=== PATIENT | female | born 1970 | race Caucasian/White ===

== ENCOUNTER 2024-07-11 19:15 | Observation (INO) | payer MEDICAID, SELFPAY ==
[2024-07-11 19:33] VITALS: BP 171/76; PULSE 75; RESP 22; TEMP 37.2; O2SAT 100; BMI 30.2
[2024-07-11 19:37] VITALS: BP 160/82; PULSE 78; RESP 18; O2SAT 100
--- NOTE | 2024-07-11 19:40 | XR_ITS ---
PROCEDURE INFORMATION: Exam: XR Chest Exam date and time: 07/11/2024 7:50 PM Age: 54 years old Clinical indication: Other: AMS TECHNIQUE: Imaging protocol: Radiologic exam of the chest. Views: 1 view. COMPARISON: No relevant prior studies available. FINDINGS: Lungs: Volume loss involving the right lower lung zone. Haziness in the right lower lung zone could be related to atelectasis versus pneumonia or scarring. Left lung clear Pleural spaces: Unremarkable. No pleural effusion. No pneumothorax. Heart/Mediastinum: Unremarkable. No cardiomegaly. Bones/joints: Chronic appearing right lateral chest wall deformity with multiple chronic the rib fractures and associated deformities. IMPRESSION: Right lower lobe atelectasis/scarring versus pneumonia. Correlate clinically.
--- NOTE | 2024-07-11 19:40 | CT_ITS ---
PROCEDURE INFORMATION: Exam: CT Head Without Contrast Exam date and time: 07/11/2024 7:56 PM Age: 54 years old Clinical indication: Altered mental status/memory loss; Additional info: AMS TECHNIQUE: Imaging protocol: Computed tomography of the head without contrast. Radiation optimization: All CT scans at this facility use at least one of these dose optimization techniques: automated exposure control; mA and/or kV adjustment per patient size (includes targeted exams where dose is matched to clinical indication); or iterative reconstruction. COMPARISON: No relevant prior studies available. FINDINGS: Brain: Normal. No hemorrhage. Unremarkable white matter. No mass effect. Cerebral ventricles: No ventriculomegaly. Paranasal sinuses: Visualized sinuses are unremarkable. No fluid levels. Mastoid air cells: Visualized mastoid air cells are well aerated. Bones: Unremarkable. No acute fracture. Soft tissues: Unremarkable. IMPRESSION: No acute intracranial abnormality.
[2024-07-11 20:26] LABS: VBG Base Excess -4.3 mmol/L (-2.4-2.3); VBG HCO3 21.6 mmol/L (23-30); VBG PCO2 41.6 mmol/L (35-51); VBG PH 7.33 mmol/L (7.31-7.41); VBG PO2 38.2 mmol/L (28-40); VBG Total CO2 22.9 mmol/L (23-27)
[2024-07-11 20:30] LABS: Coronavirus 19, PCR Not Detected (NotDetected); Influenza A, PCR Not Detected (NotDetected); Influenza B, PCR Not Detected (NotDetected)
--- NOTE | 2024-07-11 20:30 | ED_ITS ---
Discharge Plan Disposition Patient Disposition: Admitted Clinical Impressions Clinical Impression: Acute alteration in mental status, Hypomagnesemia, Hypocalcemia, Hyperthyroidism Discharge ED Provider: Kaycee Hollins General Adult HPI General Chief complaint: Weakness Stated complaint: Seeing bugs,hearing people talk that are not there Time Seen by Provider: 07/11/24 19:33 Mode of Arrival: Ambulatory Source of Information: Patient Description of Symptoms (Recalled from ER Triage Doc. by RN): pt here w/ c/o bacteria infection. Was in dent ED, dx w/ psychosis per daughter. pt denies fever/pain. History of Present Illness HPI narrative: This patient is a 54-year-old female without known past medical history presenting to the emergency department for evaluation with concern for hallucinations, seeing things that are not there. She notes that she has a very bad bacterial infection and also has very low potassium and needs potassium now. She does not provide any further history. Patient's daughter dropped her off and did not stay to help provide any sort of history. Patient was reportedly recently discharged from [facility], for which we have requested records but have not gotten them yet. She does have a dressing in place that looks like a central line dressing in her right groin. Patient has a coto positive review of systems telling me that everything is bothering her. She still may need to get potassium before she dies. 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 She does not provide any further history. Related Data Home Medications ?Medication ?Instructions ?Recorded ?Confirmed propranolol 60 mg capsule,24 60 mg PO DAILY 07/11/24 07/11/24 hr,extended release sertraline 25 mg tablet 25 mg PO DAILY 07/11/24 07/11/24 Allergies Allergy/AdvReac Type Severity Reaction Status Date / Time tetracycline (TETRACYCLINE) Allergy Mild Unknown Verified 07/11/24 20:59 allergy reaction [facility] Disclaimer: The information contained in this section may have been updated after the patient was seen, as this information can be updated by other users. Social History Smoking Status: Never smoker alcohol intake: never current occupational status: unemployed Travel in the last 8 weeks: None ROS Obtained: Yes unobtainable due to mental status Physical Exam General General appearance: alert and in no apparent distress Head Head exam: atraumatic and normocephalic Eye Eye exam: Present normal appearance, PERRL and EOMI ENT ENT exam: Present normal exam, normal oropharynx, mucous membranes moist and normal external ear exam Neck Neck exam: Present normal inspection, full ROM and trachea midline; Absent tenderness Chest Chest inspection: Present normal inspection and symmetric chest wall rise; Absent tenderness Respiratory Respiratory exam: Present normal lung sounds bilaterally; Absent respiratory distress, wheezes, stridor or accessory muscle use Cardiovascular Cardiovascular exam: Present regular rate and normal rhythm Abdominal Exam Abdominal exam: Present soft; Absent distention, tenderness or guarding Extremities Exam Extremities exam: Present normal inspection, full ROM and normal capillary refill; Absent tenderness or edema Back Exam Back exam: Present normal inspection and full ROM; Absent tenderness Neurological Exam Neurological exam: Present alert, CN II-XII intact and normal gait; Absent oriented X3 or motor sensory deficit Psychiatric Psychiatric exam: Present normal affect and normal mood Skin Skin exam: Present warm, dry, rash and other (Scattered excoriations over her skin) Medical Decision Making Medical Records Medical records reviewed: Yes I reviewed the patient's medical records. Screening: Per USPSTF and CDC recommendations, given the prevalence of disease in our region, it is our hospital?s policy to screen for HIV and viral Hepatitis for all patients aged 18 and over and those with ongoing risk factors. Roger Inquiry Pt receiving controlled substance: No Vital Signs: 07/11/24 19:33 07/11/24 19:37 07/11/24 22:25 Temperature 98.9 F 98.9 F Temperature Source Oral Tympanic Pulse Rate 78 78 Pulse Rate [Apical] 75 Respiratory Rate 22 18 20 Blood Pressure 160/82 H 158/60 H Blood Pressure [Right Arm] 171/76 H Blood Pressure Mean [Right Arm] 107 02 Sat by Pulse Oximetry 100 100 Oxygen Delivery Method Room Air Room Air Room Air Lab Data Lab results reviewed: Yes I reviewed the patient's lab results. Lab Results 07/11/24 20:18: WBC 6.5, RBC 3.51 L, Hgb 11.6 L, Hct 35.2 L, MCV 100.3 H, MCH 33.0 H, MCHC 33.0, RDW 14.7, Plt Count 171, MPV 11.6 H, Neut % (Auto) 44.2, Lymph % (Auto) 45.3, [place] % (Auto) 6.2, Eos % (Auto) 3.2, Baso % (Auto) 0.5, Neut # (Auto) 2.9, Lymph # (Auto) 2.9, [place] # (Auto) 0.4, Eos # (Auto) 0.2, Baso # (Auto) 0.0, Sodium 141, Potassium 3.6, Chloride 110 H, Carbon Dioxide 25, Anion Gap 9.6, BUN 15, Creatinine 0.80, Estimated Creat Clear 96, Estimated GFR 75, Est GFR ( Amer) 91, Glucose 200 H, Calcium 8.3 L, Phosphorus 3.4, M agnesium 1.4 L, Total Bilirubin 1.1, AST 77 H, ALT 54, Alkaline Phosphatase 138 H, Total Protein 6.4, Albumin 3.1 L, Globulin 3.3 H, Albumin/Globulin Ratio 0.9 L, TSH 2.28, Thyroxine (T4) > 24.9 H, Plasma/Serum Alcohol < 10 07/11/24 20:22: VBG pH 7.33, VBG pCO2 41.6, VBG pO2 38.2, VBG HCO3 21.6 L, VBG Total CO2 22.9 L, VBG O2 Saturation 66.0, VBG Base Excess -4.3 L, VBG Lactic Acid 1.0 07/11/24 20:26: SARS-CoV-2 (PCR) Not detected, Influenza A Untype (PCR) Not detected, Influenza Type B (PCR) Not detected 07/11/24 20:33: Ammonia 10 07/11/24 20:58: Urine Color Yellow, Urine Appearance Clear, Urine pH 5.5, Ur Specific [place] >= 1.030, Urine Protein Negative, Urine Glucose (UA) Negative, Urine Ketones Negative, Urine Blood Negative, Urine Nitrate Negative, Urine Bilirubin Negative, Urine Urobilinogen 1.0, Ur Leukocyte Esterase Negative, Urine WBC 3-5, Ur Squamous Epith Cells 10-20, Urine Bacteria 1+, Hyaline Casts 5-10, Urine Mucus 1+, Urine Opiates Screen Negative, Urine Methadone Screen Negative, Ur Barbituates Screen Negative, Ur Phencyclidine Scrn Negative, Ur Amphetamines Screen Negative, U Benzodiazepines Scrn Negative, Urine Cocaine Screen Negative, U Marijuana (THC) Screen Negative 07/11/24 20:18 07/11/24 20:18 Orders (Tests/Meds): ED MEDICATIONS Generic Name Dose Route Start Last Admin Trade Name Freq PRN Reason Stop Dose Admin Acetaminophen 650 mg 07/11/24 22:25 Acetaminophen 325mg Tab PO 08/10/24 22:24 Q4HP PRN Fever or Mild Pain (1-3) Enoxaparin Sodium 40 mg 07/12/24 09:00 Enoxaparin 40mg/0.4ml Syringe SUBCUT 08/11/24 08:59 DAILY GIGI Nicotine 21 mg 07/11/24 22:25 Nicotine 21mg/24hr Patch TD 08/10/24 22:24 DAILYP PRN Nicotine Cravings Ondansetron HCl 4 mg 07/11/24 22:25 Ondansetron 4mg/2ml Vial IV 08/10/24 22:24 Q8HP PRN Nausea Discontinued Medications Generic Name Dose Route Start Last Admin Trade Name Freq PRN Reason Stop Dose Admin Magnesium Sulfate 2 gm in 50 mls @ 50 mls/hr 07/11/24 20:39 07/11/24 21:17 Magnesium Sulfate 2gm/50ml Premix IV 07/11/24 21:38 50 mls/hr ONCE ONE Administration Calcium Gluconate/Sodium Chloride 1 gm in 50 mls @ 50 mls/hr 07/11/24 20:40 07/11/24 21:17 Calcium Gluconate 1,000mg/50ml Nacl Premix IV 07/11/24 21:39 50 mls/hr ONCE ONE Administration ORDERS Category Date Time Status CT head/brain wo con Stat Cat Scan 07/11/24 19:40 Completed CXR --portable [XR chest portable] Stat Exams 07/11/24 19:40 Completed Ammonia Stat Lab 07/11/24 20:33 Completed Basic Metabolic Panel AMLAB Lab 07/12/24 06:00 Ordered Basic Metabolic Panel AMLAB Lab 07/13/24 06:00 Ordered Basic Metabolic Panel AMLAB Lab 07/14/24 06:00 Ordered Basic Metabolic Panel AMLAB Lab 07/15/24 06:00 Ordered Basic Metabolic Panel AMLAB Lab 07/16/24 06:00 Ordered CBC w/Auto Diff [Complete Blood Count Auto Diff] Stat Lab 07/11/24 20:18 Completed CMP [Comprehensive Metabolic Panel] Stat Lab 07/11/24 20:18 Completed Complete Blood Count Auto Diff AMLAB Lab 07/12/24 06:00 Ordered Complete Blood Count Auto Diff AMLAB Lab 07/13/24 06:00 Ordered Complete Blood Count Auto Diff AMLAB Lab 07/14/24 06:00 Ordered Complete Blood Count Auto Diff AMLAB Lab 07/15/24 06:00 Ordered Complete Blood Count Auto Diff AMLAB Lab 07/16/24 06:00 Ordered Ethyl Alcohol Stat Lab 07/11/24 20:18 Completed MAG [Magnesium] Stat Lab 07/11/24 20:18 Completed Magnesium AMLAB Lab 07/12/24 06:00 Ordered PHOS [Phosphorous] Stat Lab 07/11/24 20:18 Completed Rapid PCR Covid and Flu A/B Stat Lab 07/11/24 20:26 Completed T4 (Thyroxine) Stat Lab 07/11/24 20:18 Completed TSH [Thyroid Stimulating Hormone] Stat Lab 07/11/24 20:18 Completed UA [Urinalysis and Microscopic] Stat Lab 07/11/24 20:58 Completed UDS [Drug Screen,Urine] Stat Lab 07/11/24 20:58 Completed VBG [Venous Blood Gas] Stat RT 07/11/24 20:22 Completed Medical Decision Narrative: In summary, this patient is a 54-year-old female presenting to the Emergency Department for evaluation of hallucinations. She states that she has a bad infection and needs potassium. Differential diagnoses considered include but are not limited to psychiatric disturbance, hyperthyroidism, CO2 retention, substance use, urinary tract infection, acute intracranial pathology. Ruling out the most morbid conditions drove assessment. On exam, the patient is sitting upright in no acute distress. She has no focal neurologic deficits but is confused and does not answer orientation questions appropriately. She is very pleasant and conversational. She states that her potassium is low and she needs potassium before she dies, but I advised her that I would recommend waiting to obtain lab evaluation. Workup included lab evaluation to evaluate for infectious, metabolic, cardiac etiologies as well as CT head without contrast and chest x-ray. I independently interpreted CT and chest x-ray prior to the radiologist read and noted no large space-occupying intracranial lesion or hemorrhage, no large focal consolidation concerning for pneumonia. Please see their read for final interpretation. Labs were obtained that demonstrated reassuring CBC with no significant leukocytosis. Chemistry demonstrates hypomagnesemia and hypocalcemia for which IV replacement ordered. She has mild transaminitis. T4 significantly elevated with a normal TSH, this could potentially be causing her symptoms but unclear at this time. Urine demonstrates a lot of squamous cells contaminating the specimen. She does have 1+ bacteria but this is not reliable given contamination. She is negative for nitrates or leukocyte esterase. Drug screen and ethanol level negative. On reassessment, patient remains pleasant and conversational without focal deficits, but she still disoriented. I feel she would benefit from admission for further workup of the electrolyte derangements, thyroid abnormalities, and altered mental status. I had an interactive discussion with the hospitalist who admitted the patient in stable condition. Procedures Miscellaneous Procedure Procedure Performed: Ultrasound IV PROCEDURE NOTE: IV Placement under Ultrasound Guidance Performed by: Kaycee Hollins indication: [IV access required. Multiple attempts at peripheral IV placement were made by the nursing staff without success] Procedure: The area was prepped in the usual fashion. The [R] cephalic was cannulated with a 20 gauge angiocath with use of dynamic ultrasound to identify the vein. The patient tolerated the procedure well. Complications: [none] Critical Care Critical Care Time Critical Care Time: No
[2024-07-11 20:31] LABS: Basophils % 0.5 % (0.1-2.0); Eosinophils # 0.2 K/mm3 (0.0-0.4); Eosinophils % 3.2 % (0.1-12.0); Hematocrit 35.2 % (37.0-47.0); Hemoglobin 11.6 g/dL (12.2-16.2); Lymphocytes # 2.9 K/mm3 (0.7-4.5); Lymphocytes % 45.3 % (10-50); Mean Corpuscular Volume 100.3 fl (81-99); Mean Platelet Volume 11.6 fl (7.4-10.4); Monocytes # 0.4 K/mm3 (0.1-1.0); Monocytes % 6.2 % (1.7-9.3); Neutrophils # 2.9 K/mm3 (1.8-7.8); Neutrophils % 44.2 % (37.0-80.0); Platelet Count 171 K/mm3 (142-424); Red Blood Count 3.51 M/mm3 (4.20-5.40); Red Cell Distribution Width 14.7 % (11.5-17.5); White Blood Count 6.5 K/mm3 (4.8-10.8)
[2024-07-11 20:34] LABS: Albumin Level 3.1 g/dl (3.5-5.0); Chloride 110 mmol/L (98-107); Potassium 3.6 mmoL/L (3.5-5.1); Sodium 141 mmol/L (136-145)
[2024-07-11 20:36] LABS: Blood Urea Nitrogen 15 mg/dl (7-17); Creatinine Clearance Estimated 96 mL/min (50-200); Estimated Glomerular Filt Rate 75 ml/min (>60); GFR (African American) 91 ML/MIN (>60)
[2024-07-11 20:37] LABS: Alanine Aminotransferase 54 U/L (12-78); Albumin/Globulin Ratio 0.9 (1.1-1.8); Alkaline Phosphatase 138 U/L (38-126); Anion Gap 9.6 mEq/L (5-15); Aspartate Amino Transferase 77 U/L (14-36); Bilirubin,Total 1.1 mg/dl (0.2-1.3); Calcium 8.3 mg/dl (8.4-10.2); Carbon Dioxide 25 mmol/L (22.0-30.0); Globulin 3.3 g/dL (1.3-3.2); Glucose 200 mg/dl (74-100); Phosphorous 3.4 mg/dl (2.5-4.5); Total Protein,Serum 6.4 g/dl (6.3-8.2)
[2024-07-11 20:38] LABS: Magnesium 1.4 mg/dl (1.6-2.3)
[2024-07-11 20:49] LABS: Ammonia 10 umol/L (9-30)
[2024-07-11 20:53] LABS: Ethyl Alcohol < 10 mg/dl (0-10)
[2024-07-11 21:04] LABS: Microscopic, Urine URINE MICROSCOPIC (MICROSCOPIC)
[2024-07-11 21:08] LABS: Thyroid Stimulating Hormone 2.28 uIU/mL (0.465-4.68)
[2024-07-11 21:14] LABS: Appearance,Urine CLEAR (Clear); Bilirubin,Urine Negative (Negative); Blood, Urine Negative (Negative); Color,Urine YELLOW (Yellow); Glucose,Urine (UA) Negative (Negative); Ketones,Urine Negative (Negative); Leukocyte Esterase,Urine Negative (Negative); Nitrate,Urine Negative (Negative); PH,Urine 5.5 (5.0-8.5); Protein,Urine Negative (Negative); Specific Gravity, Urine >= 1.030 (1.005-1.030)
[2024-07-11] MEDS: CALCIUM GLUC IN NACL, ISO-OSM 1 GM/50 ML BAG IV (21:17)
[2024-07-11] MEDS: MAGNESIUM SULFATE IN WATER 2 GM/50 ML PIGGYBACK IV (21:17)
[2024-07-11 21:34] LABS: T4 (Thyroxine) > 24.9 ug/dl (5.53-11.0)
[2024-07-11 21:45] LABS: Barbiturates Screen,Urine Negative ng/ml (<200); Benzodiazepines Screen,Urine Negative ng/ml (<200)
[2024-07-11 21:46] LABS: Amphetamine/Metha Screen,Urine Negative ng/ml (<1000)
[2024-07-11 21:47] LABS: Cannabinoid Screen,Urine Negative ng/ml (<50); Methadone Screen,Urine Negative ng/ml (<300)
[2024-07-11 21:48] LABS: Cocaine Screen,Urine Negative ng/ml (<300); Opiate Screen,Urine Negative ng/ml (<300)
[2024-07-11 21:49] LABS: Phencyclidine Screen,Urine Negative ng/ml (<25)
--- NOTE | 2024-07-11 22:08 | PC.NURSE ---
Spoke with [facility], they are going to be faxing medical records over at this time.
[2024-07-11 22:25] VITALS: BP 158/60; PULSE 78; RESP 20; TEMP 37.2; O2SAT 97
[2024-07-11 22:33] LABS: Bacteria,Urine 1+ /lpf; Mucus,Urine 1+ /lpf
[2024-07-11 22:40] VITALS: BP 128/80; PULSE 69; RESP 18; TEMP 36.8; O2SAT 98; BMI 30.7
--- NOTE | 2024-07-11 22:43 | PC.NURSE ---
Patient arrived to floor via wheelchair from ED at 22:28.
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
[2024-07-12 00:44] VITALS: PULSE 75
[2024-07-12 01:21] LABS: POC Glucose,Bedside 160 (70-110)
--- NOTE | 2024-07-12 02:07 | PC.NURSE ---
Called [facility] for medical records at 02:03. Waiting on a call back.
[2024-07-12 04:00] VITALS: BP 100/69; PULSE 70; PULSE 80; RESP 17; TEMP 36.9; O2SAT 99; BMI 30.7
[2024-07-12 06:36] LABS: Basophils % 0.5 % (0.1-2.0); Eosinophils # 0.2 K/mm3 (0.0-0.4); Eosinophils % 3.5 % (0.1-12.0); Hematocrit 28.8 % (37.0-47.0); Lymphocytes # 2.1 K/mm3 (0.7-4.5); Lymphocytes % 49.1 % (10-50); Mean Corpuscular HGB Conc 33.3 g/dL (31.8-35.4); Mean Corpuscular Hemoglobin 33.6 pg (27.0-31.2); Mean Corpuscular Volume 100.7 fl (81-99); Mean Platelet Volume 11.8 fl (7.4-10.4); Monocytes # 0.3 K/mm3 (0.1-1.0); Neutrophils # 1.7 K/mm3 (1.8-7.8); Neutrophils % 39.4 % (37.0-80.0); Platelet Count 130 K/mm3 (142-424); Red Blood Count 2.86 M/mm3 (4.20-5.40); Red Cell Distribution Width 14.6 % (11.5-17.5); White Blood Count 4.3 K/mm3 (4.8-10.8)
--- NOTE | 2024-07-12 06:40 | PC.NURSE ---
Alert and oriented. Walks to restroom. Walked to [employer] once. Patient noted to be talking to self in room multiple times, patient is poor historian, and states her only problem is her left lung is infected with bacteria. No issues from patient. Call light in reach.
[2024-07-12 06:47] LABS: Hemoglobin 9.6 g/dL (12.2-16.2)
[2024-07-12 06:54] LABS: Alanine Aminotransferase 45 U/L (12-78); Albumin Level 2.3 g/dl (3.5-5.0); Alkaline Phosphatase 122 U/L (38-126); Anion Gap 7.7 mEq/L (5-15); Aspartate Amino Transferase 53 U/L (14-36); Bilirubin,Direct 0.5 mg/dl (0.0-0.4); Bilirubin,Total 0.5 mg/dl (0.2-1.3); Blood Urea Nitrogen 14 mg/dl (7-17); Calcium 7.7 mg/dl (8.4-10.2); Carbon Dioxide 23 mmol/L (22.0-30.0); Chloride 113 mmol/L (98-107); Creatinine Clearance Estimated 97 mL/min (50-200); Estimated Glomerular Filt Rate 75 ml/min (>60); GFR (African American) 91 ML/MIN (>60); Glucose 198 mg/dl (74-100); Magnesium 1.6 mg/dl (1.6-2.3); Potassium 3.7 mmoL/L (3.5-5.1); Sodium 140 mmol/L (136-145); Total Protein,Serum 5.2 g/dl (6.3-8.2)
[2024-07-12 06:58] LABS: Chol/HDL Ratio 3.7 (1-3.5); Cholesterol 73 mg/dl (140-200); HDL Cholesterol 20 mg/dl (40-60); Triglycerides 96 mg/dl (30-150); VLDL Cholesterol 19 mg/dL (0-40)
--- NOTE | 2024-07-12 07:00 | MR_ITS ---
FINAL REPORT TECHNIQUE: Multiplanar MR without contrast CLINICAL HISTORY: ams and hallucinations FINDINGS: Diffusion sequences show no signal abnormality to indicate acute infarct. There are a few punctate white matter signal changes in both hemispheres, probably due to mild chronic microvascular disease. No mass, hemorrhage or edema is seen. Ventricles are normal. Major vascular flow voids are intact. IMPRESSION: No acute intracranial abnormality. No obvious mass. Nonspecific white matter signal changes, likely mild chronic microvascular ischemia. Reviewed, Interpreted and Dictated by Bob Maradiaga MD Transcribed by Anu Singh Authenticated and . [facility]
[2024-07-12 07:09] LABS: Direct LDL Cholesterol 30.85 mg/dL (100-129)
--- NOTE | 2024-07-12 07:14 | CA_ITS ---
APPROVED REPORT EXAM: Comprehensive 2D, Doppler, and color-flow Echocardiogram Health Concierge: Aditi Chapman RT(R) Ht: 5 ft 2 in Wt: 162lbs BSA: 1.75 BP: 128/80 mmHg Indications: AMS, CHF, HTN 2D Dimensions Left Atrium 3.37 cm F: 2.7 - 3.8 LVEF (Neumann's) 46.30 % F: 54 - 74 LVOT 1.75 cm (M/F) 1.5-2.5 LV Volume 74.30 mL F: 46 - 106 LV Volume Index 42.5 mL/m2 F: 29 - 61 LA Volume 30.10 mL LA Volume Index 17.20 mL/m2 (M/F) 16-34 EF AP4 46.40 % EF AP2 47.9 % EF BP 46.3 % GL Strain -13.6 % M-Mode Dimensions RVDd 2.40 cm (0.9-2.6) LVDd 4.22 cm (3.5-5.7) Ao Diam 2.73 cm (2.0-3.7) LVDs 2.57 cm (3.5-5.7) IVSd 1.00 cm (0.6-1.1) PWd 0.93 cm (0.6-1.1) EF (Teich) 69.90% FS 39.10% EDV (Teich) 79.50 mL TAPSE 1.61 (<1.7) ESV (Teich) 23.90 mL LV Diastology E Decel Time 264 (160-240 msec) E/A Ratio 1.7 MED E' 7.5 (>= 7 cm/sec) E'/MED E' Ratio 14.93 (<= 14) LAT E' 8.4 (>= 10 cm/sec) E/LAT E' Ratio 13.33 (<= 14) Mitral Valve MV E Max Tad. 112.0 (40-130 cm/s) MV A Velocity 66.0 (40-130 cm/s) E/A Ratio 1.69 MV Decel. Time 264 (160-240 ms) Tricuspid Valve TR P. Velocity 259.00 cm/s RAP Estimate 10.00 mmHg RVSP 36.70 mmHg Left Ventricle The left ventricle is normal size. The left ventricular systolic function is normal. The left ventricular ejection fraction is within the normal range. There is marked increased LV wall thickness. IVSD is 1.4 cm. There is normal LV segmental wall motion. Diastolic function is indeterminate. LVEF is 60%. Right Ventricle The right ventricle is normal size. The right ventricular systolic function is normal. Atria Left atrium is mildly dilated. Right atrium is mildly dilated. There is no Doppler evidence of interatrial shunt. Aortic Valve Aortic valve is mildly thickened. There is no aortic valvular stenosis. Trace aortic regurgitation. Mitral Valve The mitral valve leaflets are mildly thickened. Mild mitral regurgitation. No evidence of mitral valve stenosis. Tricuspid Valve Tricuspid valve is grossly normal in structure and function. Mild tricuspid regurgitation. RVSP is 30-35 mmHg. Pulmonic Valve The pulmonary valve is normal in structure. Trace pulmonic regurgitation. Great Vessels The aortic root is normal in size. IVC is normal in size and collapses >50% with inspiration. Pericardium There is no pericardial effusion. Other Information Study Quality: Fair Conclusion Normal biventricular systolic function. Marked increase in LV wall thickness. IVSD is 1.4 cm. Biatrial dilation. Mild MR, mild TR. In the setting of marked increased LV wall thickness and biatrial dilation, further outpatient evaluation for infiltrative cardiomyopathy is suggested with cardiac MRI (amyloidosis protocol), PYP nuclear scan, and amyloidosis lab testing. Electronically signed by : Shakira Duenas MD 07/12/2024 23:13:46
[2024-07-12 07:15] LABS: Free T4 (Free Thyroxine) 2.01 ng/dl (0.78-2.19)
[2024-07-12 07:22] LABS: Thyroid Stimulating Hormone 3.52 uIU/mL (0.465-4.68)
[2024-07-12 07:47] LABS: Vitamin B12 981 pg/mL (239-931)
[2024-07-12 07:58] VITALS: BP 131/71; PULSE 73; RESP 16; TEMP 36.9; O2SAT 96
[2024-07-12 08:00] VITALS: PULSE 70
--- NOTE | 2024-07-12 08:00 | US_ITS ---
FINAL REPORT CLINICAL HISTORY: t4 elevation FINDINGS: Limited sonographic images of the thyroid were obtained. Right thyroid volume is 4.6 mL. Left thyroid volume is 2.8 mL. The isthmus measures 0.36 cm. No mass or nodule is identified. IMPRESSION: Unremarkable thyroid ultrasound. Reviewed, Interpreted and Dictated by Bob Maradiaga MD Transcribed by Anu Singh Authenticated and [facility]
[2024-07-12] MEDS: ENOXAPARIN 40MG/0.4ML SYRINGE 40 MG SUBCUT (08:06)
--- NOTE | 2024-07-12 11:03 | PC.NURSE ---
I spoke with the pt's daughter and asked her if it would be possible for her to come up to the hospital and have an in person conversation with Dr. Aragon today. Daughter stated that she would be up here soon but expressed her concern for taking her mother home with her when she is this delusional and stated that she was unable to take care of her mother in this state.
[2024-07-12 12:00] VITALS: BP 121/51; PULSE 80; RESP 16; TEMP 37.1; O2SAT 97
[2024-07-12 12:32] LABS: Hemoglobin A1C 5.2 % (4.0-6.0)
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
--- NOTE | 2024-07-12 15:36 | SW/DCPLANNER ---
Addendum entered by Olivia Gonzalez RN 07/12/24 15:49: I spoke with Mark (patient's spouse), and he wanted me to confirm if patient wanted to return home with daughter or with him. Patient stated that she would rather go home with daughter, but was also ok with picking her up. I spoke with Mark again and he plans to call daughter and have her come get the patient. I also discussed the importance of f/u appts. Original Note: Patient is currently medically stable for discharge. I did contact patient's daughter (Qi) that patient lives w/ regarding discharge. Qi stated that patient will need to be admitted to psych facility. I informed Qi that patient does not currently have any present behaviors to be admitted to psych. I did explain the importance of following up w/ her outpatient appointments which includes psych. Daughter requested that I contact patient's (Mark [phone]) regarding discharge. I contacted Mark and he stated that due to Qi being closer she would need to transport patient home at this time. Mark stated that he would contact Qi then contact me back.
[2024-07-13 09:14] LABS: Thyroid Peroxidase Antibodies <9 IU/mL (0-34)
--- NOTE | 2024-07-14 10:43 | SW/DCPLANNER ---
Phoned patient x2. Patients number is not a working number. Paul Bland
[2024-07-15 07:10] LABS: Thyroid Stimulating Immunoglob <0.10 IU/L (0.00-0.55)
== END 2024-07-12 16:09 | disposition home or self-care (01) ==
LOC: ER 22:04 → 2ND 22:08
PROVIDERS: Nurse Practitioner Family; Admitting Provider Internal Medicine Adolescent Medicine; Emergency Provider Emergency Medicine; Visit Provider Internal Medicine Adolescent Medicine
DX: E05.90 Thyrotoxicosis, unspecified without thyrotoxic crisis or storm (principal); E83.51 Hypocalcemia; E83.42 Hypomagnesemia; R44.1 Visual hallucinations; G93.41 Metabolic encephalopathy; T38.1X6A Underdosing of thyroid hormones and substitutes, initial encounter; Z91.128 Patient's intentional underdosing of medication regimen for other reason; R73.9 Hyperglycemia, unspecified; Z88.1 Allergy status to other antibiotic agents; Z79.899 Other long term (current) drug therapy; E66.9 Obesity, unspecified; Z68.30 Body mass index [BMI] 30.0-30.9, adult; S22.41XS Multiple fractures of ribs, right side, sequela
CPT/HCPCS: 36415; 70450; 70551; 71045; 76536; 80048; 80053; 80061; 80076; 80307; 80320; 81001; 82140; 82607; 82746; 82803; 82962; 83036; 83735; 84100; 84436; 84439; 84443; 84445; 85025; 86376; 87636; 93306; 99285; G0378; J1650; J3475